=== PATIENT | male | born 1995 | race Caucasian/White ===

== ENCOUNTER 2016-06-05 12:24 | Emergency (ER) | payer OTHER ==
--- NOTE | ~2016-06-05 | CR142 ---
[facility]. [facility] A Service of [facility] & [facility] RADIOLOGY TEXT RESULTS PATIENT: JACLYN ORELLANA LOCATION: SED : [birth year] UNIT #: [id number] AGE: [address]: BRITTANI APZ SEX: M ORDER DR: [id number] [place] [id number] E MR#: [id number] #: [id number] NAME: JACLYN ORELLANA : 1995 SEX: M STUDY DATE/TIME: 06/05/2016 13:38 UNIT: SED ROOM: STUDY DESCRIPTION: CR Hand Min 3 Views Rt Attending Physician: Brittani Paz Aprn Ordering Physician: Brittani Paz Aprn Primary Care Physician: No Primary Care Physician MEDICAL IMAGING REPORT This report is preliminary unless electronic signature is present. EXAM Right hand, 3 views, 06/05/2016. COMPARISON None. CLINICAL HISTORY Persistent pain in the long finger, injured by smashing between metal bars 6 weeks ago. FINDINGS Negative for fracture, foreign body, or dislocation. No acute findings. Dictated by... José Kirk M.D. THIS IS AN ELECTRONICALLY VERIFIED REPORT José Kirk M.D. at 06/12/2016 10:45 AM JOE/susan TD: 06/05/2016 14:20 JOB #: [id number] MEDICAL IMAGING REPORT Page 1 of 1
== END 2016-06-05 14:39 | disposition home or self-care (01) ==
LOC: SED 12:24
DX: S60.031A Contusion of right middle finger without damage to nail, initial encounter (principal); F17.200 Nicotine dependence, unspecified, uncomplicated; X58.XXXA Exposure to other specified factors, initial encounter; Y92.9 Unspecified place or not applicable
CPT/HCPCS: 73130; 99283